=== PATIENT | male | born 1995 | race Caucasian/White ===

== ENCOUNTER 2024-09-22 02:07 | Emergency (ER) | payer MEDICAID ==
[~2024-09-22] VITALS: Ht 165.1 cm; Wt 81.6 kg
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
[2024-09-22 02:23] VITALS: BP 129/89; PULSE 92; RESP 14; TEMP 98.5; O2SAT 98
--- NOTE | 2024-09-22 03:47 | DVH ---
INDICATION: sob TECHNIQUE: Frontal view of the chest. COMPARISON: None FINDINGS: . The heart and mediastinal contours are grossly unremarkable. There is no evidence of pleural disea se. The lungs are clear. The bony structures of the chest are intact without fracture. IMPRESSION: 1. No evidence of acute disease.
--- NOTE | 2024-09-22 06:41 | ECG ---
[facility] Test Date: 2024-09-22 Test Time: 02:10:06 Pat Name: TORI RODRÍGUEZ Department: ED Room: Gender: M Production Estimator: : 1995 Requested By: MESSI ARMSTRONG Order Number: [id number] Reading MD: Feliciano Beach Measurements Intervals [place] Rate: 110 P: 63 WV: 145 QRS: 82 QRSD: 101 T: 58 QT: 346 QTc: 469 Interpretive Statements Sinus tachycardia ST elev, probable normal early repol pattern Electronically Signed On 09-22-2024 22:42:38 PDT by Feliciano Beach Please click the below link to view image of tracing.
== END 2024-09-22 04:12 | disposition home or self-care (01) ==
LOC: EDBD 02:07 → ER 02:09
DX: T59.811A Toxic effect of smoke, accidental (unintentional), initial encounter (principal); R06.02 Shortness of breath; Y92.89 Other specified places as the place of occurrence of the external cause
CPT/HCPCS: 71045; 93005

== ENCOUNTER 2024-11-25 18:22 | Emergency (ER) | payer MEDICAID ==
[~2024-11-25] VITALS: Ht 167.6 cm; Wt 104.5 kg
--- NOTE | 2024-11-25 18:28 | ED.PDOC ---
Eye-HPI HPI Comments PT BIBA FROM HOME FOR C/O EAR PAIN, PT STATED HE FEELS SOMETHING LIKE A INSECT IN HIS EAR. PER EMS SHE LOOK AND DID NOT SEE ANYTHING IN HIS EARS. DENIES PAIN, PT HAS NO THER MEDICAL COMPLAINT Chief Complaint: Earache Time Seen by MD: 18:28 Reviewed Notes: Nurses Notes, Medications, Allergies Allergies: Coded Allergies: NO KNOWN ALLERGIES (Unverified , 05/05/15) Home Meds Active Scripts Gbrpbngc-Xzqlpaqrz-Ci (Otic) (Cortisporin Otic Susp) [address], 4 DROP RIGHT EAR TID for 5 Days, #10 ML Prov:MELY PANTOJA [employer] 11/25/24 Information Source: Patient Mode of Arrival: EMS Past Medical History PAST MEDICAL HISTORY: Denies Surgical History: Denies all surgeries Family History Family History: Unknown Social History Smoker: Non-Smoker Lives In: Home Constitutional: denies: chills, diaphoresis, fatigue, fever, malaise, sweats, weakness, others EENTM: reports: ear pain; denies: blurred vision, double vision, ear bleeding, ear discharge, ear drainage, ear ringing, eye pain, eye redness, hearing loss, mouth pain, mouth swelling, nasal discharge, nose bleeding, nose congestion, nose pain, photophobia, tearing, throat pain, throat swelling, voice changes, others Respiratory: denies: cough, hemoptysis, orthopnea, SOB at rest, shortness of breath, SOB with excertion, stridor, wheezing, others Cardiovascular: denies: chest pain, dizzy spells, diaphoresis, Dyspnea on exertion, edema, irregular heart beat, left arm pain, lightheadedness, palpitations, PND, syncope, others Gastrointestinal: denies: abdomen distended, abdominal pain, blood streaked bowels, constipated, diarrhea, dysphagia, difficulty swallowing, hematemesis, melena, nausea, poor appetite, poor fluid intake, rectal bleeding, rectal pain, vomiting, others Genitourinary: denies: burning, dysuria, flank pain, frequency, hematuria, incontinence, penile discharge, penile sore, pain, testicle pain, testicle swelling, urgency, others Neurological: denies: dizziness, fainting, headache, left sided numbness, left sided weakness, numbness, paresthesia, pre-existing deficit, right sided numbness, right sided weakness, seizure, speech problems, tingling, tremors, weakness, others Musculoskeletal: denies: back pain, gout, joint pain, joint swelling, muscle pain, muscle stiffness, neck pain, others Integumetry: denies: bruises, change in color, change in hair/nails, dryness, laceration, lesions, lumps, rash, wounds, others Allergic/Immunocompromised: denies: Difficulty Healing, Frequent Infections, H jovita, Itching, others Hematologic/Lymphatic: denies: anemia, blood clots, easy bleeding, easy bruising, swollen glands, others Endocrine: denies: excessive hunger, excessive sweating, excessive thirst, excessive urination, flushing, intolerance to cold, intolerance to heat, unexplained weight gain, unexplained weight loss, others Psychiatric: denies: anxiety, bipolar disorder, depression, hopeless, panic disorder, schizophrenia, sleepless, suicidal, others Physical Exam General Appearance: No Apparent Distress, Normal HEENT: Pharynx Normal, TMs Normal, Other (Right ear canal shows no foreign body noted bleeding and swelling likely secondary to patient picking at ear. No Noted drainage TM within normal limits) Neck: Full Range of Motion, Non-Tender, Normal, Normal Inspection Respiratory: Chest Non-Tender, Lungs Clear, No Accessory Muscle Use, No Respiratory Distress, Normal Breath Sounds Cardiovascular: No Edema, No JVD, No Murmur, No Gallop, Normal Peripheral Pulses, Regular Rate/Rhythm Breast Exam: Deferred Gastrointestinal: No Organomegaly, Non Tender, No Pulsatile Mass, Normal Bowel Sounds, Soft Genitalia: Deferred Pelvic: Deferred Rectal: Deferred Extremities: No calf tenderness, Normal capillary refill, Normal inspection, Normal range of motion, Non-tender, No pedal edema Musculoskeletal : Apperance: Normal Neurologic: Alert, 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 Was a procedure done?: No EENT DIFF Eye: N/A Ear: Cerumen Impaction, Foreign Body, Otitis Externa, Barotrauma, Otitis Media, Perforation, Dental, Pharyngitis X-Ray, Labs, Meds, VS Vital Signs Date Time Temp Pulse Resp B/P (MAP) Pulse Ox O2 Delivery O2 Flow Rate FiO2 11/25/24 18:45 98.0 11/25/24 18:23 98.0 92 18 118/76 (90) 100 98.0 Current Medications Medications (Trade) Dose Ordered Sig/Paty Route Start Time Stop Time Status Last Admin Ibuprofen (Motrin Tablet) 800 mg ONCE ONCE PO 11/25/24 18:45 11/25/24 18:46 DC 11/25/24 18:45 X-Ray, Labs, Meds, VS Comment Patient given ibuprofen for the pain. Script trial of Cortisporin. Advised to take medications as prescribed side effects discussed. [id number] Tylenol or Motrin as needed for the pain per labeled dosing instructions. Follow up with your PCP in 2-3 days as necessary. ER return precautions given patient indicates understanding and agrees with discharge plan of care. Time of 1ST Reevaluation: 18:29 Reevaluation 1ST: Improved Patient Education/Counseling: Diagnosis, Treatment, Prognosis, Need For Follow Up Family Education/Counseling: No Family Present Departure 1 Departure Time of Disposition: 18:30 Impression: Primary Impression: Otitis externa of right ear Qualified Codes: H60.501 - Unspecified acute noninfective otitis externa, right ear Disposition: HOME / SELF CARE / HOMELESS Condition: Stable e-Prescriptions Uqwndbhw-[id number]-Pz (Otic) (Cortisporin Otic Susp) [address] 4 DROP RIGHT EAR TID for 5 Days, #10 ML Prov: MELY PANTOJA 11/25/24 Discharged With: Self Critical Care Note Critical Care Time?: No Stability Stability form required: MELY Gill November 25, 2024 18:28
[2024-11-25] MEDS ORDERED: HYDROcodone-ACET 5/325MG TAB PO ONE (18:30)
[2024-11-25] MEDS ORDERED: COROSUS RIGHT EAR (18:31)
[2024-11-25 18:40] VITALS: BP 116/78; PULSE 94; RESP 16; O2SAT 99
[2024-11-25 18:45] VITALS: TEMP 98
[2024-11-25] MEDS: IBUPROFEN 800 MG TAB PO ONE (18:45)
== END 2024-11-25 19:08 | disposition home or self-care (01) ==
LOC: ER 18:22 → EDBD 18:22 → EDUNIT# 18:22 → ER 19:07
DX: H60.91 Unspecified otitis externa, right ear (principal)